=== PATIENT | female | born 1995 | race Caucasian/White ===

== ENCOUNTER 2022-01-10 17:54 | Observation (INO) | payer MEDICAID ==
[~2022-01-10] VITALS: Ht 172 cm; Wt 110.2 kg
[2022-01-10] MEDS: LACTATED RINGERS 1,000 ML IV SCH ×2 (18:52→20:30)
[2022-01-10 18:59] LABS: CLARITY URINE CLEAR (CLEAR); COLOR URINE YELLOW (YELLOW); KETONES URINE NEGATIVE (NEGATIVE); LEUKOCYTE ESTERASE URINE 3+ (NEGATIVE); NITRITE URINE NEGATIVE (NEGATIVE); OCCULT BLOOD URINE NEGATIVE (NEGATIVE); PROTEIN URINE NEGATIVE (NEGATIVE); SPECIFIC GRAVITY URINE 1.011 (1.005-1.030)
[2022-01-10] MEDS ORDERED: CEFAZOLIN 2,000 MG in DEXT 5% WATER 100 ML IV NR (20:00)
[2022-01-10] MEDS ORDERED: PREN1TAB78 MT (21:12)
== END 2022-01-10 22:14 | disposition home or self-care (01) ==
LOC: 8 EST LDRP 17:54
PROVIDERS: ADMIT Obstetrics & Gynecology; ATTEND Obstetrics & Gynecology
DX: O26.853 Spotting complicating pregnancy, third trimester (principal); O26.893 Other specified pregnancy related conditions, third trimester; R10.2 Pelvic and perineal pain; Z3A.36 36 weeks gestation of pregnancy
CPT/HCPCS: 59025; 76805; 76818; 81003; 96361; 96365; G0378; J0690; J7060; 96360; 99281